=== PATIENT | male | born 1985 | race Caucasian/White ===

== ENCOUNTER 2016-12-31 20:59 | Emergency (ER) | payer OTHER ==
[~2016-12-31] VITALS: Ht 180.3 cm; Wt 108.9 kg
[2016-12-31 21:21] VITALS: BP 142/86
--- NOTE | 2016-12-31 22:38 | NUR ---
TO ER BED 8
[2016-12-31 22:45] VITALS: BP 124/79
--- NOTE | 2016-12-31 22:49 | NUR ---
PATIENT PRESENTS TO ED WITH A HEADACHE X1DAY . PT STATES HE BEIEVES IT MAY BE BEACAUSE HE HAS HAD HIGH BLOOD PRESSURE FOR THE PAST FEW DAYS. PATIENTS CURRENT BLOOD PRESSURE IS 124/79 . DENIES N/V/D; SKIN IS PINK/WARM/DRY; AAOX4 WITH EVEN AND STEADY GAIT; LUNGS CLEAR BL; HR EVEN AND REGULAR; PT DENIES ANY FEVER, CP, SOB, OR COUGH AT THIS TIME; PATIENT STATES PAIN OF 8/10 AT THIS TIME; VSS; PATIENT POSITIONED FOR COMFORT; HOB ELEVATED; BEDRAILS UP X2; BED DOWN. ER MD MADE AWARE OF PT STATUS. , MIO, AT BEDSIDE.
--- NOTE | 2016-12-31 23:10 | NUR ---
PATIENT LEFT WITHOUT BEING SEEN BY DR. IVERSON. NO FURTHER CARE PROVIDED FOR PATIENT.
== END 2016-12-31 23:10 | disposition left against medical advice (07) ==
LOC: MED 21:08
DX: R51 Headache (principal); Z53.21 Procedure and treatment not carried out due to patient leaving prior to being seen by health care provider

== ENCOUNTER 2024-08-18 06:00 | Emergency (ER) | payer MEDICAID, OTHER ==
[~2024-08-18] VITALS: Ht 177.8 cm; Wt 127.0 kg
[~2024-08-18 06:00] MED LIST: AMOX1TAB8 PO; COROTSUS LEFT EAR; IBUP-2213 PO
[2024-08-18 06:10] VITALS: BP 164/96; PULSE 109; RESP 20; TEMP 98.3; O2SAT 98
[2024-08-18 07:18] VITALS: O2SAT 98
[2024-08-18 08:19] LABS: BASOPHILS # (AUTO) 0.1 K/uL (0.00-0.22); BASOPHILS % (AUTO) 0.8 % (0.0-2.0); EOSINOPHILS # (AUTO) 0.5 K/uL (0-0.4); EOSINOPHILS % (AUTO) 4.5 % (0.0-4.0); HEMATOCRIT 44.9 % (36-52); HEMOGLOBIN 14.8 g/dL (12.0-18.0); LYMPHOCYTES # (AUTO) 2.8 K/uL (2.0-11.5); LYMPHOCYTES % (AUTO) 26.5 % (20.5-51.1); MEAN CORPUSCULAR HEMOGLOBIN 29 pg (27-31); MEAN CORPUSCULAR HGB CONC 33 g/dL (33-37); MEAN CORPUSCULAR VOLUME 86.8 fL (80-94); MONOCYTES # (AUTO) 0.9 K/uL (0.8-1.0); MONOCYTES % (AUTO) 8.4 % (1.7-9.3); NEUTROPHILS # (AUTO) 6.2 K/uL (1.8-7.7); NEUTROPHILS % (AUTO) 59.8 % (42.2-75.2); PLATELET COUNT (AUTO) 260 K/uL (140-450); RED BLOOD CELL COUNT(AUTO) 5.17 MIL/uL (4.20-6.10); RED CELL DISTRIBUTION WIDTH 14.5 % (11.6-13.7); WHITE BLOOD COUNT (AUTO) 10.4 K/uL (4.8-10.8)
[2024-08-18 08:34] LABS: ANION GAP 10.6 (8-16); CALCIUM 8.7 mg/dL (8.5-10.1); CARBON DIOXIDE 29.4 mmol/L (21-32); CREATININE 1.1 mg/dL (0.6-1.3)
[2024-08-18 09:08] VITALS: O2SAT 98
[2024-08-18] MEDS ORDERED: ALBU0.0912 INH (09:36)
[2024-08-18] MEDS ORDERED: AMLO5TAB PO (09:36)
[2024-08-18 10:00] VITALS: BP 157/71; PULSE 97; RESP 16; TEMP 98.1; O2SAT 99
== END 2024-08-18 09:59 | disposition home or self-care (01) ==
LOC: MED 06:00
DX: S90.121A Contusion of right lesser toe(s) without damage to nail, initial encounter (principal); J06.9 Acute upper respiratory infection, unspecified; J40 Bronchitis, not specified as acute or chronic; R60.0 Localized edema; R07.89 Other chest pain; F41.9 Anxiety disorder, unspecified; I10 Essential (primary) hypertension; Z79.899 Other long term (current) drug therapy; X58.XXXA Exposure to other specified factors, initial encounter; Y92.89 Other specified places as the place of occurrence of the external cause; Y93.89 Activity, other specified; Y99.8 Other external cause status
CPT/HCPCS: 36415; 71045; 73660; 80048; 83880; 84484; 85025; 93005; 99285